=== PATIENT | female | born 1985 | race African-American/Black ===

== ENCOUNTER 2020-10-14 13:54 | Inpatient (IN) | payer MEDICAID, OTHER ==
[~2020-10-14] VITALS: Ht 152.4 cm; Wt 61.7 kg
[2020-10-14] MEDS ORDERED: SODIUM CHLORIDE 0.9% 1,000 ML IV ONE ×2 (16:15)
[2020-10-14] MEDS ORDERED: FOLIC ACID 1 MG, THIAMINE HCL 100 MG, MVI, ADULT NO.1 10 ML in DEXTROSE 5% WATER 1,000 ML IV ONE (16:15)
[2020-10-14] MEDS ORDERED: ONDANSETRON HCL 4MG/2ML INJ IV ONE (16:15)
[2020-10-14] MEDS ORDERED: LORAZEPAM 2MG/ML CPJ IV ONE ×2 (16:30→20:00)
[2020-10-14 17:05] LABS: CLARITY URINE CLEAR (CLEAR); COLOR URINE DARK YELLOW (YELLOW); KETONES URINE 4+ (NEGATIVE); LEUKOCYTE ESTERASE URINE 1+ (NEGATIVE); NITRITE URINE NEGATIVE (NEGATIVE); OCCULT BLOOD URINE 3+ (NEGATIVE); PROTEIN URINE 2+ (NEGATIVE); SPECIFIC GRAVITY URINE 1.026 (1.005-1.030)
[2020-10-14 17:22] LABS: *AMPHETAMINES SCREEN URINE NEGATIVE (NEGATIVE); CANNABINOID URINE SCREEN NEGATIVE (NEGATIVE)
[2020-10-14 17:23] LABS: *BARBITURATES SCREEN URINE NEGATIVE (NEGATIVE); *BENZODIAZEPINES SCREEN URINE NEGATIVE (NEGATIVE); *COCAINE SCREEN URINE NEGATIVE (NEGATIVE); METHADONE URINE SCREEN NEGATIVE (NEGATIVE); OPIATES URINE SCREEN NEGATIVE (NEGATIVE); PHENCYCLIDINE URINE SCREEN NEGATIVE (NEGATIVE)
[2020-10-14 17:31] LABS: BASOPHILS % 0.6 % (0.0-2.0); EOSINOPHILS % 0.3 % (0.0-5.0); HEMATOCRIT. 43.1 % (36.0-48.0); HEMOGLOBIN. 15.1 g/dL (12.0-16.0); LYMPHOCYTES % 26.7 % (20.0-50.0); MEAN CORPUSCULAR HEMOGLOBIN 35.5 pg (28.0-32.0); MEAN CORPUSCULAR VOLUME 101.3 fL (81.0-99.0); MONOCYTES % 4.4 % (2.0-8.0); RED BLOOD CELL COUNT 4.25 mill/uL (4.2-5.4); RED CELL DISTRIBUTION WIDTH 18.2 % (11.6-14.6)
[2020-10-14 17:40] LABS: HCG SCREEN NEGATIVE
[2020-10-14] MEDS ORDERED: CEFTRIAXONE 1 G PREMIX 50 ML IV ONE (18:00)
[2020-10-14 18:02] LABS: PLATELET ESTIMATE NORMAL
[2020-10-14 18:03] LABS: MEAN PLATELET VOLUME 9.5 fl (7.4-10.4)
[2020-10-14 18:04] LABS: PLATELET 214 x1000/uL (130-400)
[2020-10-14 18:11] LABS: CHLORIDE 95 mEq/L (98-107)
[2020-10-14 18:17] LABS: ETHANOL BLOOD < 10 mg/dL
[2020-10-14] MEDS ORDERED: MAGNESIUM OXIDE 400MG TABLET PO STA (18:59)
[2020-10-14] MEDS ORDERED: POTASSIUM CHLORIDE 20MEQ TABLET SR PO ONE (19:00)
[2020-10-14] MEDS ORDERED: CLONIDINE 0.2MG TABLET PO ONE (20:00)
[2020-10-14] MEDS ORDERED: CLONIDINE 0.1MG TABLET PO PRN (22:30)
[2020-10-14 23:00] VITALS: BP 145/104
[2020-10-14] MEDS ORDERED: ONDANSETRON HCL 4MG/2ML INJ IV PRN (23:45)
[2020-10-14 23:55] VITALS: BP 168/132
[2020-10-15] VITALS (9 sets, daily range): BP systolic 120–158; BP diastolic 75–117
[2020-10-15] MEDS ORDERED: MAGNESIUM 2 G PREMIX 50 ML IV SCH (01:00)
[2020-10-15 06:01] LABS: CHLORIDE 102 mEq/L (98-107)
[2020-10-15 06:13] LABS: PHOSPHORUS 2.9 mg/dL (2.5-4.9)
[2020-10-15 06:15] LABS: BASOPHILS % 0.9 % (0.0-2.0); EOSINOPHILS % 3.1 % (0.0-5.0); HEMATOCRIT. 38.1 % (36.0-48.0); HEMOGLOBIN. 12.6 g/dL (12.0-16.0); LYMPHOCYTES % 43.4 % (20.0-50.0); MEAN CORPUSCULAR HEMOGLOBIN 33.9 pg (28.0-32.0); MEAN CORPUSCULAR VOLUME 102.4 fL (81.0-99.0); MEAN PLATELET VOLUME 8.4 fl (7.4-10.4); MONOCYTES % 6.1 % (2.0-8.0); NEUTROPHILS % 46.5 % (40.0-76.0); PLATELET 92 x1000/uL (130-400); RED BLOOD CELL COUNT 3.72 mill/uL (4.2-5.4); RED CELL DISTRIBUTION WIDTH 17.5 % (11.6-14.6)
[2020-10-15] MEDS ORDERED: POTASSIUM CHLORIDE 20MEQ TABLET SR PO NR (08:15)
[2020-10-15] MEDS: CHLORDIAZEPOXIDE 25MG CAPSULE PO SCH ×2 (08:28→17:57)
[2020-10-15] MEDS: METOPROLOL TARTRATE 50MG TABLET PO SCH ×2 (08:29→20:25)
[2020-10-15] MEDS: PANTOPRAZOLE SODIUM 40 MG/VIAL IV SCH (08:29)
[2020-10-15] MEDS: AMLODIPINE 10MG TABLET PO SCH (08:42)
[2020-10-15] MEDS ORDERED: FOLIC ACID 1 MG, THIAMINE HCL 100 MG, MVI, ADULT NO.1 10 ML in DEXTROSE 5% WATER 1,000 ML IV NR (09:00)
[2020-10-15] MEDS ORDERED: LORAZEPAM 2MG/ML CPJ IV PRN (16:30)
[2020-10-16] VITALS: BP 107/64
[2020-10-16 04:00] VITALS: BP 131/94
[2020-10-16 07:13] LABS: BASOPHILS % 0.9 % (0.0-2.0); EOSINOPHILS % 1.8 % (0.0-5.0); HEMOGLOBIN. 12.7 g/dL (12.0-16.0); LYMPHOCYTES % 39.8 % (20.0-50.0); MEAN CORPUSCULAR HEMOGLOBIN 34.5 pg (28.0-32.0); MEAN CORPUSCULAR VOLUME 103.3 fL (81.0-99.0); MEAN PLATELET VOLUME 9.8 fl (7.4-10.4); MONOCYTES % 5.9 % (2.0-8.0); NEUTROPHILS % 51.6 % (40.0-76.0); PLATELET 83 x1000/uL (130-400); RED BLOOD CELL COUNT 3.68 mill/uL (4.2-5.4); RED CELL DISTRIBUTION WIDTH 17.6 % (11.6-14.6)
[2020-10-16 07:24] LABS: CHLORIDE 104 mEq/L (98-107)
[2020-10-16 08:00] VITALS: BP 131/92
[2020-10-16 09:00] VITALS: BP 151/100
[2020-10-16] MEDS: PANTOPRAZOLE SODIUM 40 MG/VIAL IV SCH (09:19)
[2020-10-16] MEDS: CHLORDIAZEPOXIDE 25MG CAPSULE PO SCH (09:19)
[2020-10-16] MEDS: METOPROLOL TARTRATE 50MG TABLET PO SCH (09:20)
[2020-10-16] MEDS: AMLODIPINE 10MG TABLET PO SCH (09:20)
[2020-10-16] MEDS ORDERED: POTASSIUM CHLORIDE 20MEQ TABLET SR PO NR (09:45)
[2020-10-16] MEDS ORDERED: NICO-645 TP (10:05)
[2020-10-16] MEDS ORDERED: AMLO10TA80 PO (10:05)
[2020-10-16] MEDS ORDERED: METO-539 PO (10:05)
[2020-10-16 10:43] VITALS: BP 140/96
== END 2020-10-16 11:12 | disposition home or self-care (01) | DRG 199 ==
LOC: ER 13:54 → 5EST 20:09 → EDBEDREQTM 20:14 → EDBEDREQSVC 20:14 → EDBEDREQ 20:14 → ENRESERV 20:52 → 5EST 23:33
PROVIDERS: ADMIT Internal Medicine; ATTEND Internal Medicine
DX: I16.0 Hypertensive urgency (principal); E83.42 Hypomagnesemia; F10.239 Alcohol dependence with withdrawal, unspecified; E87.6 Hypokalemia; F17.210 Nicotine dependence, cigarettes, uncomplicated; I10 Essential (primary) hypertension; R74.01 Elevation of levels of liver transaminase levels; Z98.891 History of uterine scar from previous surgery; Z71.41 Alcohol abuse counseling and surveillance of alcoholic; Z71.6 Tobacco abuse counseling
CPT/HCPCS: 36415; 71045; 76700; 80048; 80053; 80305; 80320; 81003; 83605; 83735; 84100; 84484; 84703; 85025; 93005; 99291; C9113; J0696; J2060; J2405; J3411; J3475; J3490; J7030; J7070; G0480